=== PATIENT | male | born 1990 | race Caucasian/White ===

== ENCOUNTER 2017-01-08 05:43 | Emergency (ER) | payer OTHER ==
[2017-01-08 07:32] VITALS: BP 129/80
== END 2017-01-08 08:01 | disposition home or self-care (01) ==
LOC: ED 05:43
DX: L50.9 Urticaria, unspecified (principal); W57.XXXA Bitten or stung by nonvenomous insect and other nonvenomous arthropods, initial encounter; Y93.89 Activity, other specified; Y99.8 Other external cause status; Y92.89 Other specified places as the place of occurrence of the external cause
CPT/HCPCS: J1200; J2930; J3490

== ENCOUNTER 2019-02-08 20:30 | Emergency (ER) | payer OTHER ==
[~2019-02-08] VITALS: Ht 170.2 cm; Wt 68.9 kg
[2019-02-08 20:36] VITALS: Ht 170.2 cm; Wt 68.9 kg
[2019-02-08 22:20] VITALS: BP 118/74
== END 2019-02-08 22:20 | disposition home or self-care (01) ==
LOC: ED 20:30
DX: S61.210A Laceration without foreign body of right index finger without damage to nail, initial encounter (principal); F17.210 Nicotine dependence, cigarettes, uncomplicated; Z88.8 Allergy status to other drugs, medicaments and biological substances; Z91.030 Bee allergy status; W26.8XXA Contact with other sharp object(s), not elsewhere classified, initial encounter; Y93.89 Activity, other specified; Y92.89 Other specified places as the place of occurrence of the external cause; Y99.8 Other external cause status
CPT/HCPCS: J2001; J3490; Q0092

== ENCOUNTER 2019-02-09 11:01 | Emergency (ER) | payer OTHER ==
[~2019-02-09] VITALS: Ht 170.2 cm; Wt 73.0 kg
[2019-02-09 11:08] VITALS: Ht 170.2 cm; Wt 73.0 kg
[2019-02-09 12:17] VITALS: BP 129/77
== END 2019-02-09 12:17 | disposition home or self-care (01) ==
LOC: ED 11:01
DX: S61.211D Laceration without foreign body of left index finger without damage to nail, subsequent encounter (principal); W45.8XXD Other foreign body or object entering through skin, subsequent encounter; Z91.038 Other insect allergy status

== ENCOUNTER 2019-07-01 01:52 | Emergency (ER) | payer OTHER ==
[~2019-07-01] VITALS: Ht 170.2 cm; Wt 75.9 kg
[2019-07-01 02:50] VITALS: BP 142/77; Ht 170.2 cm; Wt 75.9 kg
== END 2019-07-01 03:26 | disposition left against medical advice (07) ==
LOC: ED 01:52
DX: Z53.21 Procedure and treatment not carried out due to patient leaving prior to being seen by health care provider (principal)

== ENCOUNTER 2019-07-22 04:36 | Emergency (ER) | payer OTHER ==
[~2019-07-22] VITALS: Ht 170.2 cm; Wt 73.0 kg
[2019-07-22 06:04] VITALS: BP 134/89
== END 2019-07-22 06:04 | disposition home or self-care (01) ==
LOC: ED 04:36
DX: S60.512A Abrasion of left hand, initial encounter (principal); S60.511A Abrasion of right hand, initial encounter; X58.XXXA Exposure to other specified factors, initial encounter; Y93.89 Activity, other specified; Y92.89 Other specified places as the place of occurrence of the external cause; Y99.8 Other external cause status
CPT/HCPCS: J2001